=== PATIENT | female | born 1985 | race Caucasian/White ===

== ENCOUNTER 2017-11-08 17:05 | Emergency (ER) | payer BC, OTHER ==
[2017-11-08 17:34] VITALS: BP 120/83
--- NOTE | 2017-11-08 18:35 | EDM.PDOC ---
Scribed by Elin Wheeler 11/08/17 2433 for Maryellen Guerra NP ED HPI GENERAL MEDICAL PROBLEM - General Chief Complaint: Upper Extremity Injury/Pain Stated Complaint: LEFT PINKY, ? BROKEN Time Seen by Provider: 11/08/17 17:45 Source of Information: Reports: Patient, RN, RN Notes Reviewed History Limitations: Reports: No Limitations - History of Present Illness INITIAL COMMENTS - FREE TEXT/NARRATIVE: Patient presented to ER with complaint of pain in the left pinky. Patient states she was moving boxes and hurt her finger. See rad report. Onset: Today Location: Reports: Upper Extremity, Left Quality: Reports: Ache Severity: Mild Improves with: Reports: None Worsens with: Reports: None Associated Symptoms: Reports: No Other Symptoms Left Hand Pain Score (Numeric/FACES): 5 - Related Data Allergies Allergy/AdvReac Type Severity Reaction Status Date / Time amoxicillin trihydrate Allergy Rash Verified 11/08/17 17:34 [From Augmentin] potassium clavulanate Allergy Rash Verified 11/08/17 17:34 [From Augmentin] Home Meds: Home Meds Acetaminophen [Tylenol Extra Strength] 1,000 mg PO ASDIRECTED PRN 11/08/17 [ History] Norgestimate-Ethinyl Estradiol [Ortho-Cyclen 28 Tablet] 1 tab PO DAILY 11/08/17 [History] Past Medical History - Past Health History Medical/Surgical History: Denies Medical/Surgical History HEENT History: Reports: None Cardiovascular History: Reports: None Respiratory History: Reports: None Gastrointestinal History: Reports: None Genitourinary History: Reports: None BODY PIERCER History: Reports: None Neurological History: Reports: None Psychiatric History: Reports: None Endocrine/Metabolic History: Reports: None Hematologic History: Reports: None Immunologic History: Reports: None Oncologic (Cancer) History: Reports: None Dermatologic History: Reports: None - Infectious Disease History Infectious Disease History: Reports: Chicken Pox - Past Surgical History Head Surgeries/Procedures: Reports: None Female Surgical History: Reports: Section Musculoskeletal Surgical History: Reports: Other (See Below) Other Musculoskeletal Surgeries/Procedures:: pins in hand Social & Family History - Tobacco Use Smoking Status *Q: Never Smoker Second Hand Smoke Exposure: No - Caffeine Use Caffeine Use: Reports: None - Recreational Drug Use Recreational Drug Use: No Review of Systems - Review of Systems Review Of Systems: ROS reveals no pertinent complaints other than HPI. ED EXAM, GENERAL - Physical Exam Exam: See Below Exam Limited By: No Limitations General Appearance: Alert, WD/WN, No Apparent Distress Eye Exam: Bilateral Eye: EOMI, Normal Inspection Ears: Normal External Exam, Normal Canal, Hearing Grossly Normal, Normal TMs Nose: Normal Inspection, Normal Mucosa, No Blood Throat/Mouth: Normal Inspection, Normal Lips, Normal Teeth, Normal Gums, Normal Oropharynx, Normal Voice, No Airway Compromise Head: Atraumatic, Normocephalic Neck: Normal Inspection, Supple, Non-Tender, Full Range of Motion Respiratory/Chest: No Respiratory Distress, Lungs Clear, Normal Breath Sounds, No Accessory Muscle Use, Chest Non-Tender Cardiovascular: Normal Peripheral Pulses, Regular Rate, Rhythm, No Edema, No Gallop, No JVD, No Murmur, No Rub GI/Abdominal: Normal Bowel Sounds, Soft, Non-Tender, No Organomegaly, No Distention, No Abnormal Bruit, No Mass (Female) Exam: Deferred Rectal (Female) Exam: Deferred Back Exam: Normal Inspection, Full Range of Motion, NT Extremities: Other (Swelling/ecchymosis left pink finger) Neurological: Alert, Oriented, CN II-XII Intact, Normal Cognition, Normal Gait, Normal Reflexes, No Motor/Sensory Deficits Psychiatric: Normal Affect, Normal Mood Skin Exam: Other (see extremity exam.) ED TRAUMA EXTREMITY PROCEDURES - Splinting Left 5th Digit Splint Site: left pinky finger Pre-Procedure NV Status: Normal Post-Procedure NV Status: Normal Splint Material: Aluminum-Foam Applied & Form Fitted By: Provider Provider Post-Splint Application NV Check: NV Status Normal, Good Position Complications: No Course - Vital Signs Last Recorded V/S: Last Vital Signs Temp 36.6 C 11/08/17 17:29 Pulse 82 11/08/17 17:29 Resp 16 11/08/17 17:29 BP 120/83 11/08/17 17:29 Pulse Ox 100 11/08/17 17:29 - Orders/Labs/Meds Orders: Active Orders 24 hr Category Date Time Status Hand 2V Lt [CR] Urgent Exams 11/08/17 17:49 Taken - Radiology Interpretation Free Text/Narrative:: Left hand xray: IMPRESSION: Fracture of the proximal portion of the distal phalanx of the fifth finger noted. Overlying soft tissue swelling present. Thank you for allowing us to participate in the care of your patient. Dictated and Authenticated by: Vinnie Luke DO 11/08/2017 6:15 PM Central Time ([place] & [place]) See rad report Departure - Departure Time of Disposition: 18:19 Disposition: Home, Self-Care 01 Condition: Good Clinical Impression: Fracture, finger, distal phalanx Qualifiers: Encounter type: initial encounter Finger: little finger Fracture type: closed Fracture alignment: nondisplaced Laterality: left Qualified Code(s): S62.667A - Nondisplaced fracture of distal phalanx of left little finger, initial encounter for closed fracture - Discharge Information Instructions: Cast or Splint Care, Adult, [id number] Forms: ED Department Discharge Additional Instructions: May use Tylenol and/or ibuprofen as directed for pain Follow up with your primary care facility I have read and agree with the documentation that has been completed regarding this visit. By signing this record, I attest that the documentation was completed in my physical presence and is an accurate record of the encounter.
== END 2017-11-08 18:28 | disposition home or self-care (01) ==
LOC: DL.ED 17:05
DX: S62.667A Nondisplaced fracture of distal phalanx of left little finger, initial encounter for closed fracture (principal); Z88.1 Allergy status to other antibiotic agents; X58.XXXA Exposure to other specified factors, initial encounter
CPT/HCPCS: 73120-LT; 99284

== ENCOUNTER 2019-01-13 09:31 | Emergency (ER) | payer OTHER ==
--- NOTE | 2019-01-13 09:55 | EDM.PDOC ---
ED HPI GENERAL MEDICAL PROBLEM - General Chief Complaint: Back Pain or Injury Stated Complaint: BACK PAIN LOWER/UPPER PER PT Time Seen by Provider: 01/13/19 09:53 Source of Information: Reports: Patient, Old Records, RN, RN Notes Reviewed History Limitations: Reports: No Limitations - History of Present Illness INITIAL COMMENTS - FREE TEXT/NARRATIVE: Pt presents to ER from work by POV with c/o onset of low back pain 01/11/19 with no associated injury, activity, or cause. Shortly after the onset of back pain in the lumbar region, the pt reports the pain moved to the middle of her back, and then she developed epigastric pain that radiates straight through to the back and was associated with intense nausea. Denies fever, chills, vomiting, diarrhea, constipation, chest pain, or cough. Now pt has RUQ and epigastric abdominal pain with worsening nausea and middle back pain. She rates the pain . Onset Date: 01/11/19 Duration: Constant Location: Reports: Abdomen, Back Quality: Reports: Ache Severity: Severe Improves with: Reports: None Worsens with: Reports: Eating, Movement Associated Symptoms: Reports: No Other Symptoms Upper Back Pain Score (Numeric/FACES): 7 - Related Data Allergies Allergy/AdvReac Type Severity Reaction Status Date / Time amoxicillin trihydrate Allergy Mild Rash Verified 01/13/19 09:36 [From Augmentin] potassium clavulanate Allergy Rash Verified 11/08/17 17:34 [From Augmentin] Home Meds: Home Meds Acetaminophen [Tylenol Extra Strength] 1,000 mg PO ASDIRECTED PRN 11/08/17 [ History] Norgestimate-Ethinyl Estradiol [Ortho-Cyclen 28 Tablet] 1 tab PO DAILY 11/08/17 [History] Past Medical History - Past Health History Medical/Surgical History: Denies Medical/Surgical History HEENT History: Reports: None Cardiovascular History: Reports: None Respiratory History: Reports: None Gastrointestinal History: Reports: None Genitourinary History: Reports: None UNDER TRIMMER History: Reports: None Neurological History: Reports: None Psychiatric History: Reports: None Endocrine/Metabolic History: Reports: Obesity/BMI 30+ Hematologic History: Reports: None Immunologic History: Reports: None Oncologic (Cancer) History: Reports: None Dermatologic History: Reports: None - Infectious Disease History Infectious Disease History: Reports: Chicken Pox - Past Surgical History Head Surgeries/Procedures: Reports: None Female Surgical History: Reports: Section Musculoskeletal Surgical History: Reports: Other (See Below) Other Musculoskeletal Surgeries/Procedures:: pins in hand Social & Family History - Family History Family Medical History: Noncontributory - Tobacco Use Smoking Status *Q: Never Smoker - Caffeine Use Caffeine Use: Reports: None - Living Situation & Occupation Living situation: Reports: with Family Occupation: Employed ED ROS GENERAL - Review of Systems Review Of Systems: ROS reveals no pertinent complaints other than HPI. ED EXAM,LOWER BACK PAIN/INJURY - Physical Exam Exam: See Below Exam Limited By: No Limitations General Appearance: Alert, No Apparent Distress, Mild Distress (due to pain), Obese Eye Exam: Bilateral Eye: Normal Inspection (No scleral icterus) Nose: Normal Inspection Throat/Mouth: Normal Inspection, Normal Voice, No Airway Compromise Head: Atraumatic, Normocephalic Neck: Normal Inspection, Supple, Non-Tender, Full Range of Motion Respiratory/Chest: No Respiratory Distress, Lungs Clear, Normal Breath Sounds, No Accessory Muscle Use, Chest Non-Tender Cardiovascular: Normal Peripheral Pulses, Regular Rate, Rhythm, No Edema, No Gallop, No JVD, No Murmur, No Rub GI/Abdominal: Normal Bowel Sounds, Soft, No Distention, No Abnormal Bruit, Tender (RUQ and Epigastric tenderness). No: Guarding, Rigid, Rebound (Female) Exam: Deferred Rectal (Female) Exam: Deferred Back Exam: Full Range of Motion, Paraspinal Tenderness (thoracic and lumbar). No: CVA Tenderness (L), CVA Tenderness (R), Vertebral Tenderness Extremities: Normal Inspection, Normal Range of Motion, Non-Tender, No Pedal Edema, Normal Capillary Refill Neurological: Alert, Normal Mood/Affect, CN II-XII Intact, Normal Gait, No Motor /Sensory Deficits, Oriented x 3 Psychiatric: Normal Mood, Tearful Skin Exam: Warm, Dry, Intact, Normal Color, No Rash Course - Vital Signs Last Recorded V/S: Last Vital Signs Temp 97.3 F 01/13/19 12:33 Pulse 83 01/13/19 12:33 Resp 18 01/13/19 12:33 BP 114/69 01/13/19 12:33 Pulse Ox 100 01/13/19 12:33 - Orders/Labs/Meds Orders: Active Orders 24 hr Category Date Time Status Peripheral IV Care [RC] . DIRECTED Care 01/13/19 09:58 Active Abdomen Pelvis wo Cont [CT] Urgent Exams 01/13/19 10:50 Taken Sodium Chloride 0.9% [Saline Flush] Med 01/13/19 09:57 Active 10 ml FLUSH ASDIRECTED PRN Peripheral IV Insertion Adult [OM.PC] Stat Oth 01/13/19 09:57 Ordered Medication Orders Sodium Chloride (Saline Flush) 10 ml FLUSH ASDIRECTED PRN PRN Reason: Keep Vein Open Last Admin: 01/13/19 10:16 Dose: 10 ml Labs: Laboratory Tests 01/13/19 01/13/19 01/13/19 Range/Units 09:55 09:55 09:55 WBC (5.0-10.0) 10^3/uL RBC (4.2-5.4) 10^6/uL Hgb (12.0-16.0) g/dL Hct (37.0-47.0) % MCV (80-100) fL MCH (27.0-34.0) pg MCHC (33.0-35.0) g/dL Plt Count (150-450) 10^3/uL Neut % (Auto) (42.2-75.2) % Lymph % (Auto) (20.5-50.1) % [place] % (Auto) (2-8) % Eos % (Auto) (1.0-3.0) % Baso % (Auto) (0.0-1.0) % Sodium (135-145) mmol/L Potassium (3.6-5.0) mmol/L Chloride (101-111) mmol/L Carbon Dioxide (21.0-31.0) mmol/L Anion Gap BUN (7-18) mg/dL Creatinine (0.6-1.3) mg/dL Est Cr Clr Drug Dosing mL/min Estimated GFR (MDRD) BUN/Creatinine Ratio Glucose (74-105) mg/dL Calcium (8.4-10.2) mg/dl Total Bilirubin (0.2-1.0) mg/dL AST (10-42) IU/L ALT (10-60) IU/L Alkaline Phosphatase (42-121) IU/L Total Protein (6.7-8.2) g/dl Albumin (3.2-5.5) g/dl Globulin Albumin/Globulin Ratio Amylase (28-100) U/L Lipase (22-51) U/L Urine Color Yellow (YELLOW) Urine Appearance Clear (CLEAR) Urine pH 5.5 (5.0-9.0) Ur Specific Bud >= 1.030 (1.005-1.030) Urine Protein Negative (NEGATIVE) Urine Glucose (UA) Negative (NEGATIVE) Urine Ketones Negative (NEGATIVE) Urine Occult Blood Trace-intact H (NEGATIVE) Urine Nitrite Negative (NEGATIVE) Urine Bilirubin Negative (NEGATIVE) Urine Urobilinogen 0.2 (0.2-1.0) mg/dL Ur Leukocyte Esterase Negative (NEGATIVE) Urine RBC 0-5 /HPF Urine WBC 0-5 (0-5/HPF) /HPF Ur Epithelial Cells Many H (NOT SEEN) /HPF Amorphous Sediment Few (NOT SEEN) /HPF Urine Bacteria Few (0-FEW/HPF) /HPF Urine Mucus Many H (NOT SEEN) /LPF Urine HCG, Qual Negative Urine Opiates Screen Negative (NEGATIVE) Ur Oxycodone Screen Negative (NEGATIVE) Urine Methadone Screen Negative (NEGATIVE) Ur Barbiturates Screen Negative (NEGATIVE) U Tricyclic Antidepress Negative (NEGATIVE) Ur Phencyclidine Scrn Negative (NEGATIVE) Ur Amphetamine Screen Negative (NEGATIVE) U Methamphetamines Scrn Negative (NEGATIVE) Urine MDMA Screen Negative (NEGATIVE) U Benzodiazepines Scrn Negative (NEGATIVE) Urine Cocaine Screen Negative (NEGATIVE) U Marijuana (THC) Screen Negative (NEGATIVE) 01/13/19 01/13/19 Range/Units 10:05 10:05 WBC 6.4 (5.0-10.0) 10^3/uL RBC 4.93 (4.2-5.4) 10^6/uL Hgb 15.0 D (12.0-16.0) g/dL Hct 44.4 (37.0-47.0) % MCV 90.1 (80-100) fL MCH 30.4 (27.0-34.0) pg MCHC 33.8 (33.0-35.0) g/dL Plt Count 307 (150-450) 10^3/uL Neut % (Auto) 56.8 (42.2-75.2) % Lymph % (Auto) 34.5 (20.5-50.1) % [place] % (Auto) 6.3 (2-8) % Eos % (Auto) 1.9 (1.0-3.0) % Baso % (Auto) 0.5 (0.0-1.0) % Sodium 137 (135-145) mmol/L Potassium 3.8 (3.6-5.0) mmol/L Chloride 104 (101-111) mmol/L Carbon Dioxide 26.0 (21.0-31.0) mmol/L Anion Gap 10.8 BUN 9 (7-18) mg/dL Creatinine 0.6 (0.6-1.3) mg/dL Est Cr Clr Drug Dosing 115.16 mL/min Estimated GFR (MDRD) > 60 BUN/Creatinine Ratio 15.00 Glucose 93 (74-105) mg/dL Calcium 8.5 (8.4-10.2) mg/dl Total Bilirubin 0.5 (0.2-1.0) mg/dL AST 24 (10-42) IU/L ALT 26 (10-60) IU/L Alkaline Phosphatase 53 (42-121) IU/L Total Protein 7.8 (6.7-8.2) g/dl Albumin 4.1 (3.2-5.5) g/dl Globulin 3.7 Albumin/Globulin Ratio 1.11 Amylase 49 (28-100) U/L Lipase 30 (22-51) U/L Urine Color (YELLOW) Urine Appearance (CLEAR) Urine pH (5.0-9.0) Ur Specific Bud (1.005-1.030) Urine Protein (NEGATIVE) Urine Glucose (UA) (NEGATIVE) Urine Ketones (NEGATIVE) Urine Occult Blood (NEGATIVE) Urine Nitrite (NEGATIVE) Urine Bilirubin (NEGATIVE) Urine Urobilinogen (0.2-1.0) mg/dL Ur Leukocyte Esterase (NEGATIVE) Urine RBC /HPF Urine WBC (0-5/HPF) /HPF Ur Epithelial Cells (NOT SEEN) /HPF Amorphous Sediment (NOT SEEN) /HPF Urine Bacteria (0-FEW/HPF) /HPF Urine Mucus (NOT SEEN) /LPF Urine HCG, Qual Urine Opiates Screen (NEGATIVE) Ur Oxycodone Screen (NEGATIVE) Urine Methadone Screen (NEGATIVE) Ur Barbiturates Screen (NEGATIVE) U Tricyclic Antidepress (NEGATIVE) Ur Phencyclidine Scrn (NEGATIVE) Ur Amphetamine Screen (NEGATIVE) U Methamphetamines Scrn (NEGATIVE) Urine MDMA Screen (NEGATIVE) U Benzodiazepines Scrn (NEGATIVE) Urine Cocaine Screen (NEGATIVE) U Marijuana (THC) Screen (NEGATIVE) Meds: Medications Generic Name Dose Route Start Last Admin Trade Name Freq PRN Reason Stop Dose Admin Sodium Chloride 10 ml 01/13/19 09:57 01/13/19 10:16 Saline Flush FLUSH 10 ml ASDIRECTED PRN Administration Keep Vein Open Discontinued Medications Generic Name Dose Route Start Last Admin Trade Name Freq PRN Reason Stop Dose Admin Famotidine 20 mg 01/13/19 13:05 Pepcid IVPUSH 01/13/19 13:06 ONETIME ONE Hydromorphone HCl 1 mg 01/13/19 10:02 01/13/19 10:13 Dilaudid IVPUSH 01/13/19 10:03 1 mg ONETIME ONE Administration Hydromorphone HCl 1 mg 01/13/19 11:25 01/13/19 11:32 Dilaudid IVPUSH 01/13/19 11:26 1 mg ONETIME ONE Administration Hydromorphone HCl 1 mg 01/13/19 12:52 Dilaudid IVPUSH 01/13/19 12:53 ONETIME ONE Sodium Chloride 1,000 mls @ 999 mls/hr 01/13/19 10:03 01/13/19 10:11 Normal Saline IV 01/13/19 11:03 999 mls/hr .BOLUS ONE Administration Metronidazole 500 mg/ Premix 100 mls @ 100 mls/hr 01/13/19 10:49 01/13/19 10: 59 IV 01/13/19 11:48 100 mls/hr ONETIME ONE Administration Ketorolac Tromethamine 30 mg 01/13/19 10:50 01/13/19 10:59 Toradol IVPUSH 01/13/19 10:51 30 mg ONETIME ONE Administration Ondansetron HCl 4 mg 01/13/19 09:58 01/13/19 10:12 Zofran IV 01/13/19 09:59 4 mg ONETIME ONE Administration Ondansetron HCl 4 mg 01/13/19 11:25 01/13/19 11:31 Zofran IV 01/13/19 11:26 4 mg ONETIME ONE Administration - Radiology Interpretation Free Text/Narrative:: CT Abdomen/Pelvis w/out contrast: no renal or ureteral calculi, distended gallbladder, no other acute findings per Rad. report. US RUQ/Limited Abdomen: no GB stones or sludge, no ductal dilatation, negative GB US per Rad. report. - Re-Assessments/Exams Free Text/Narrative Re-Assessment/Exam: 01/13/19 13:06 I explained the exam findings, results of all diagnostic tests, working diagnosis, and any potential or additionally considered diagnoses, treatment/ disposition plan, self/home care instructions, rational for the diagnosis/ treatment plan/disposition plan, anticipated course of illness, and follow up instructions to the pt and pts family. The pt and pts family acknowledges understanding of the above explanation(s), and of the signs and symptoms which should prompt the return of the pt to the ER should those or any other concerning symptoms develop. Departure - Departure Time of Disposition: 12:49 Disposition: Home, Self-Care 01 Condition: Fair Clinical Impression: Upper abdominal pain, Bacterial vaginosis Acute back pain Qualifiers: Back pain location: back pain in unspecified location Back pain laterality: bilateral Qualified Code(s): M54.9 - Dorsalgia, unspecified - Discharge Information *PRESCRIPTION DRUG MONITORING PROGRAM REVIEWED*: No *COPY OF PRESCRIPTION DRUG MONITORING REPORT IN PATIENT AGATHA: No Instructions: Abdominal Pain, Adult, Acute Back Pain, Adult, Bacterial Vaginosis, [id number] Forms: ED Department Discharge Additional Instructions: Rx: Hydrocodone APAP 10mg/325mg (narcotic pain medication) Rx: Promethazine 25mg (nausea medication) Rx: Cyclobenzaprine 10mg (muscle spasm medication) *Do not drive or work while under the influence of the above three medications. Rx: Flagyl 500mg (antibiotic) Use over the counter Maalox and/or Ranitidine (Zantac) to reduce stomach acid until nausea resolves. Light activity as tolerated. Avoid lifting, bending, or twisting motions. Follow up in clinic in 1 to 2 days. Return to ER if you develop fever, vomiting, or any new/concerning symptoms. - My Orders Last 24 Hours: My Active Orders 01/13/19 09:57 Sodium Chloride 0.9% [Saline Flush] 10 ml FLUSH ASDIRECTED PRN Peripheral IV Insertion Adult [OM.PC] Stat 01/13/19 09:58 Peripheral IV Care [RC] . DIRECTED 01/13/19 10:50 Abdomen Pelvis wo Cont [CT] Urgent - Assessment/Plan Last 24 Hours: My Active Orders 01/13/19 09:57 Sodium Chloride 0.9% [Saline Flush] 10 ml FLUSH ASDIRECTED PRN Peripheral IV Insertion Adult [OM.PC] Stat 01/13/19 09:58 Peripheral IV Care [RC] . DIRECTED 01/13/19 10:50 Abdomen Pelvis wo Cont [CT] Urgent
[2019-01-13] MEDS ORDERED: Ondansetron 4 MG/2 ML SDV IV ONE ×3 (09:58→13:35)
[2019-01-13] MEDS ORDERED: HYDROmorphone 1 MG/ML Syringe IVPUSH ONE ×3 (10:02→12:52)
[2019-01-13] MEDS ORDERED: Sodium Chloride 0.9% 1,000 ML IV ONE (10:03)
[2019-01-13] MEDS: Sodium Chloride 0.9% 10 ML Syringe FLUSH PRN ×4 (10:16→13:40)
[2019-01-13 10:34] LABS: ANION GAP 10.8; CHLORIDE,CL 104 mmol/L (101-111); SODIUM,NA 137 mmol/L (135-145)
[2019-01-13] MEDS ORDERED: metroNIDAZOLE/Normal Saline 500 MG in Premix Bag 100 BAG IV ONE (10:49)
[2019-01-13] MEDS ORDERED: Ketorolac 30 MG/ML SDV IVPUSH ONE (10:50)
--- NOTE | 2019-01-13 12:52 | US ---
EXAMINATION: Abdomen Ltd SEX: Female AGE: 33 years CLINICAL HISTORY: 33-year-old female complaining of RUQ/epigastric pain w/nausea. Suspicious appearance GB on CT. INTERPRETATION: 1. Uniformly distended gallbladder without obvious echogenic "shadowing" stone in the cystic duct. Significance? 2. Uniformly thick wall and no pericystic fluid or mucosal wall polyps. 3. No mobile dependent intraluminal echogenic "shadowing" gallstones. 4. No abnormal dilatation of intra or extrahepatic biliary ducts (common hepatic duct 6 mm and the common bile duct 6.5 mm). 5. No ascites. CONCLUSION: Distended gallbladder (significance?) No gallstones.
[2019-01-13] MEDS ORDERED: Famotidine 20 MG/2 ML SDV IVPUSH ONE (13:05)
--- NOTE | 2019-01-13 13:42 | CT ---
EXAMINATION: [facility] CT renal stone study SEX: Female AGE: 35-year-old CLINICAL HISTORY: 35-year-old 185 pound female with hematuria. Back and right upper quadrant abdominal pain. INTERPRETATION: 1. Gallbladder distended RUQ and inhomogeneously dense suggesting possible noncalcified intraluminal stones. 2. Normal hepatic size and anatomic configuration without abnormal dilatation of the intra or extrahepatic biliary ducts. 3. Symmetric normal-appearing kidneys. No nephrolithiasis or obstructive uropathy (no pyelocaliectasis or ureterectasis). 4. No sign of renal cortical mass lesion (unenhanced exam). 5. Midline urinary bladder symmetrically distended. No intraluminal calcifications. 6. Normal appendix RLQ. Several diverticula sigmoid colon but no current signs of inflammatory "dirty" peritoneal fat or abscess. 7. No pelvic or abdominal mass lesion, mesenteric or retroperitoneal lymphadenopathy, signs of mechanical bowel obstruction, ascites or free intraperitoneal air. Midline uterus unremarkable. Small ovarian cysts bilaterally (largest on the right 15 mm). 8. Normal caliber abdominal aorta and its major branches. Lumbar spine unremarkable. Lung bases clear. CONCLUSION: No sign of urolithiasis or obstructive uropathy. Suspicious appearance gallbladder (see above) Unenhanced CT scan abdomen and pelvis otherwise unremarkable.
[2019-01-13 13:55] VITALS: BP 114/68
== END 2019-01-13 13:50 | disposition home or self-care (01) ==
LOC: DL.ED 09:31
DX: M54.5 Low back pain (principal); M54.6 Pain in thoracic spine; R10.11 Right upper quadrant pain; R10.13 Epigastric pain; N76.0 Acute vaginitis; B96.89 Other specified bacterial agents as the cause of diseases classified elsewhere; E66.9 Obesity, unspecified; Z68.41 Body mass index [BMI] 40.0-44.9, adult; Z88.1 Allergy status to other antibiotic agents; Z79.899 Other long term (current) drug therapy
CPT/HCPCS: 36415; 74176; 76705; 80053; 80305; 81001; 81025; 82150; 83690; 85025; 96361; 96365; 96375; 96376; 99284; J1170; J1885; J2405; J3490; J7030

== ENCOUNTER 2020-01-02 10:00 | Emergency (ER) | payer OTHER ==
[2020-01-02 10:13] VITALS: BP 124/67; PULSE 86
--- NOTE | 2020-01-02 10:32 | EDM.PDOC ---
Scribed by Elin Wheeler 01/02/20 1031 for Nancy Shah MD ED HPI GENERAL MEDICAL PROBLEM - General Chief Complaint: ENT Problem Stated Complaint: CANT HEAR OUT OF LEFT EAR AND IT HURTS Time Seen by Provider: 01/02/20 10:17 Source of Information: Reports: Patient, RN, RN Notes Reviewed History Limitations: Reports: No Limitations - History of Present Illness INITIAL COMMENTS - FREE TEXT/NARRATIVE: Patient presents to ED with left ear pain. This started yesterday with sharp pain and then got worse. She tried to wait until tomorrow. She tried to sleep on that side in case something came out. They are ringing. Her teeth hurt. Bilateral ears have been ringing for 2 weeks but today it is itchy. Onset: Gradual Duration: Getting Worse Location: Reports: Other (ears) Quality: Reports: Ache Severity: Mild Improves with: Reports: None Worsens with: Reports: None Associated Symptoms: Reports: No Other Symptoms Left Ear Pain Score (Numeric/FACES): 3 - Related Data Allergies Allergy/AdvReac Type Severity Reaction Status Date / Time No Known Allergies Allergy Verified 01/02/20 10:11 Home Meds: Home Meds Acetaminophen [Tylenol Extra Strength] 1,000 mg PO ASDIRECTED PRN 11/08/17 [History] Norgestimate-Ethinyl Estradiol [Ortho-Cyclen 28 Tablet] 1 tab PO DAILY 11/08/17 [History] Past Medical History - Past Health History Medical/Surgical History: Denies Medical/Surgical History HEENT History: Reports: None Cardiovascular History: Reports: None Respiratory History: Reports: None Gastrointestinal History: Reports: None Genitourinary History: Reports: None BIOMEDICAL 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: Reports: None Neurological History: Reports: None Psychiatric History: Reports: None Endocrine/Metabolic History: Reports: Obesity/BMI 30+ Hematologic History: Reports: None Immunologic History: Reports: None Oncologic (Cancer) History: Reports: None Dermatologic History: Reports: None - Infectious Disease History Infectious Disease History: Reports: None - Past Surgical History Head Surgeries/Procedures: Reports: None Female Surgical History: Reports: Section Musculoskeletal Surgical History: Reports: Other (See Below) Other Musculoskeletal Surgeries/Procedures:: pins in hand Social & Family History - Family History Family Medical History: Noncontributory - Tobacco Use Smoking Status *Q: Never Smoker Second Hand Smoke Exposure: No - Caffeine Use Caffeine Use: Reports: Coffee - Recreational Drug Use Recreational Drug Use: No - Living Situation & Occupation Living situation: Reports: with Family Occupation: Employed ED ROS ENT - Review of Systems Review Of Systems: Comprehensive ROS is negative, except as noted in HPI. ED EXAM, ENT - Physical Exam Exam: See Below Exam Limited By: No Limitations General Appearance: Alert, WD/WN, No Apparent Distress Ears: Other (normal right ear. Left canal erythematous and edematous with black cerumen noted. Left TM is red, bulge and purulent effusion. ) Head: Atraumatic, Normocephalic Neck: Normal Inspection Respiratory/Chest: No Respiratory Distress Cardiovascular: Regular Rate, Rhythm Back: Normal Inspection Extremities: Normal Inspection Neurological: Alert, Oriented Psychiatric: Normal Affect, Normal Mood Skin: Warm, Dry, Intact Lymphatic: Other (positive left cervical nodes) Course - Vital Signs Last Recorded V/S: Last Vital Signs Temp 98.3 F 01/02/20 10:11 Pulse 86 01/02/20 10:11 Resp 16 01/02/20 10:11 BP 124/67 01/02/20 10:11 Pulse Ox 99 01/02/20 10:11 Departure - Departure Time of Disposition: 10:28 Disposition: Home, Self-Care 01 Condition: Good Clinical Impression: Otitis media Qualifiers: Otitis media type: suppurative Chronicity: acute Laterality: left Recurrence: non-recurrent Spontaneous tympanic membrane rupture: without spontaneous rupture Qualified Code(s): H66.002 - Acute suppurative otitis media without spontaneous rupture of ear drum, left ear Otitis externa Qualifiers: Otitis externa type: swimmer's ear Chronicity: acute Laterality: left Qualified Code(s): H60.332 - Swimmer's ear, left ear - Discharge Information *PRESCRIPTION DRUG MONITORING PROGRAM REVIEWED*: Not Applicable *COPY OF PRESCRIPTION DRUG MONITORING REPORT IN PATIENT AGATHA: Not Applicable Instructions: Otitis Externa, [id number], Otitis Media, Adult, [id number] Forms: ED Department Discharge Additional Instructions: RX: Amoxicillin 500mg 3 times daily for 10 days. Debrox otic solution twice daily. Sepsis Event Note (ED) - Evaluation Sepsis Screening Result: No Definite Risk - Focused Exam Vital Signs: Vital Signs Temp Pulse Resp BP Pulse Ox 01/02/20 10:11 98.3 F 86 16 124/67 99 I have read and agree with the documentation that has been completed regarding this visit. By signing this record, I attest that the documentation was completed in my physical presence and is an accurate record of the encounter.
== END 2020-01-02 10:31 | disposition home or self-care (01) ==
LOC: DL.ED 10:00
DX: H66.002 Acute suppurative otitis media without spontaneous rupture of ear drum, left ear (principal); H60.332 Swimmer's ear, left ear; H61.22 Impacted cerumen, left ear; E66.9 Obesity, unspecified; Z68.41 Body mass index [BMI] 40.0-44.9, adult
CPT/HCPCS: 99282

== ENCOUNTER 2020-03-06 20:15 | Emergency (ER) | payer OTHER ==
[2020-03-06] MEDS ORDERED: Acetaminophen/HYDROcodone 325-10 MG Tab PO ONE (20:16)
[2020-03-06] MEDS ORDERED: Cyclobenzaprine 10 MG Tab PO ONE (20:16)
[2020-03-06 20:45] VITALS: BP 120/85; PULSE 93
[2020-03-06] MEDS ORDERED: Ondansetron 4 MG/2 ML SDV IVPUSH ONE (20:48)
[2020-03-06] MEDS ORDERED: fentaNYL 100 MCG/2 ML SDV IVPUSH ONE (20:48)
[2020-03-06] MEDS ORDERED: LORazepam 2 MG/ML SDV IVPUSH PRN (20:57)
[2020-03-06 21:05] LABS: ANION GAP 11.7 mEq/L (7-13); CHLORIDE,CL 101 mmol/L (98-107); SODIUM,NA 137 mmol/L (136-145)
--- NOTE | 2020-03-06 21:41 | CR ---
PROCEDURE INFORMATION: Exam: XR Chest, 2 Views Exam date and time: 03/06/2020 9:14 PM Age: 34 years old Clinical indication: Chest pain; Other: Chest back pain TECHNIQUE: Imaging protocol: XR of the chest Views: 2 views. COMPARISON: No relevant prior studies available. FINDINGS: Lungs: Unremarkable. No consolidation. Pleural space: Unremarkable. No pleural effusion. No pneumothorax. Heart/Mediastinum: Unremarkable. No cardiomegaly. Bones/joints: Unremarkable. IMPRESSION: No acute findings.
--- NOTE | 2020-03-06 22:05 | EDM.PDOC ---
ED HPI GENERAL MEDICAL PROBLEM - General Chief Complaint: Back Pain or Injury Stated Complaint: CHEST PAIN Time Seen by Provider: 03/06/20 20:45 Source of Information: Reports: Patient, RN History Limitations: Reports: No Limitations - History of Present Illness INITIAL COMMENTS - FREE TEXT/NARRATIVE: ED with c/o of chest pain that moved into back, similar episode one year ago. No nausea or vomiting. pain worse with movement. No fever, chills or cough. No shortness of breath. Denies injury, no change in activity, sudden onset. Right Upper Back Pain Score (Numeric/FACES): 10 - Related Data Allergies Allergy/AdvReac Type Severity Reaction Status Date / Time No Known Allergies Allergy Verified 03/06/20 20:40 Home Meds: Home Meds Acetaminophen [Tylenol Extra Strength] 1,000 mg PO ASDIRECTED PRN 11/08/17 [History] Norgestimate-Ethinyl Estradiol [Ortho-Cyclen 28 Tablet] 1 tab PO DAILY 11/08/17 [History] Past Medical History - Past Health History Medical/Surgical History: Denies Medical/Surgical History HEENT History: Reports: None Cardiovascular History: Reports: None Respiratory History: Reports: None Gastrointestinal History: Reports: None Genitourinary History: Reports: None 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: Reports: None Neurological History: Reports: None Psychiatric History: Reports: None Endocrine/Metabolic History: Reports: Obesity/BMI 30+ Hematologic History: Reports: None Immunologic History: Reports: None Oncologic (Cancer) History: Reports: None Dermatologic History: Reports: None - Infectious Disease History Infectious Disease History: Reports: None - Past Surgical History Head Surgeries/Procedures: Reports: None Female Surgical History: Reports: Section Musculoskeletal Surgical History: Reports: Other (See Below) Other Musculoskeletal Surgeries/Procedures:: pins in hand Social & Family History - Family History Family Medical History: Noncontributory - Tobacco Use Tobacco Use Status *Q: Never Tobacco User Second Hand Smoke Exposure: No - Caffeine Use Caffeine Use: Reports: None - Recreational Drug Use Recreational Drug Use: No - Living Situation & Occupation Living situation: Reports: with Family Occupation: Employed ED ROS GENERAL - Review of Systems Review Of Systems: Comprehensive ROS is negative, except as noted in HPI. ED EXAM, UPPER BACK/NECK PAIN - Physical Exam Exam: See Below Exam Limited By: No Limitations General Appearance: Alert, Anxious, Moderate Distress, Obese Eye Exam: Bilateral Eye: EOMI, PERRL Ears Exam: Normal External Exam, Hearing Grossly Normal Nose Exam: Normal Inspection Throat/Mouth Exam: Normal Inspection, Normal Voice, No Airway Compromise Head Exam: Atraumatic, Normocephalic Neck Exam: Non-Tender, Full Range of Motion Nexus Criteria: No: Posterior, Midline Cervical Tenderness, Evidence of Intoxication Cardiovascular/Respiratory: Regular Rate, Rhythm, Normal Peripheral Pulses GI/Abdominal: Normal Bowel Sounds, Soft, Non-Tender, No Organomegaly, No Distention Back Exam: Muscle Spasm (right lower scapular area ) Extremities: Normal Inspection, Normal Range of Motion Neurologic: Oriented x 3 Psychiatric: Anxious Skin Exam: Warm/Dry Course - Vital Signs Last Recorded V/S: Last Vital Signs Temp 98.5 F 03/06/20 20:41 Pulse 93 03/06/20 20:41 Resp 20 03/06/20 20:41 BP 120/85 03/06/20 20:41 Pulse Ox 100 03/06/20 20:41 - Orders/Labs/Meds Labs: Laboratory Tests 03/06/20 03/06/20 03/06/20 Range/Units 20:36 20:36 20:36 WBC 14.4 H (5.0-10.0) 10^3/uL RBC 4.66 (4.2-5.4) 10^6/uL Hgb 14.3 (12.0-16.0) g/dL Hct 41.6 (37.0-47.0) % MCV 89.3 (80-100) fL MCH 30.7 (27.0-34.0) pg MCHC 34.4 (33.0-35.0) g/dL Plt Count 349 (150-450) 10^3/uL Neut % (Auto) 66.4 (42.2-75.2) % Lymph % (Auto) 24.8 (20.5-50.1) % [place] % (Auto) 6.7 (2-8) % Eos % (Auto) 1.7 (1.0-3.0) % Baso % (Auto) 0.4 (0.0-1.0) % D-Dimer, Quantitative 100 (0-400) ng/mL Sodium 137 (136-145) mmol/L Potassium 3.7 (3.5-5.1) mmol/L Chloride 101 (98-107) mmol/L Carbon Dioxide 28 (21-32) mmol/L Anion Gap 11.7 (7-13) mEq/L BUN 8 (7-18) mg/dL Creatinine 0.75 (0.55-1.02) mg/dL Est Cr Clr Drug Dosing 95.10 mL/min Estimated GFR (MDRD) > 60 BUN/Creatinine Ratio 10.7 (No establ ref range) Glucose 78 (74-99) mg/dL Calcium 8.8 (8.5-10.1) mg/dL Total Bilirubin 0.8 (0.2-1.0) mg/dL AST 19 (15-37) U/L ALT 23 (14-59) U/L Alkaline Phosphatase 97 (46-116) U/L Troponin I < 0.017 (0.000-0.056) ng/mL Total Protein 7.6 (6.4-8.2) g/dL Albumin 3.7 (3.4-5.0) g/dL Globulin 3.9 Albumin/Globulin Ratio 0.9 Amylase (25-115) U/L Lipase (73-393) U/L HCG, Qual Negative Urine Color (YELLOW) Urine Appearance (CLEAR) Urine pH (5.0-9.0) Ur Specific [place] (1.005-1.030) Urine Protein (NEGATIVE) Urine Glucose (UA) (NEGATIVE) Urine Ketones (NEGATIVE) Urine Occult Blood (NEGATIVE) Urine Nitrite (NEGATIVE) Urine Bilirubin (NEGATIVE) Urine Urobilinogen (0.2-1.0) mg/dL Ur Leukocyte Esterase (NEGATIVE) Urine RBC /HPF Urine WBC (0-5/HPF) /HPF Ur Epithelial Cells (NOT SEEN) /HPF Amorphous Sediment (NOT SEEN) /HPF Urine Bacteria (0-FEW/HPF) /HPF Urine Mucus (NOT SEEN) /LPF Urine Opiates Screen (NEGATIVE) Ur Oxycodone Screen (NEGATIVE) Urine Methadone Screen (NEGATIVE) Ur Barbiturates Screen (NEGATIVE) U Tricyclic Antidepress (NEGATIVE) Ur Phencyclidine Scrn (NEGATIVE) Ur Amphetamine Screen (NEGATIVE) U Methamphetamines Scrn (NEGATIVE) Urine MDMA Screen (NEGATIVE) U Benzodiazepines Scrn (NEGATIVE) Urine Cocaine Screen (NEGATIVE) U Marijuana (THC) Screen (NEGATIVE) 03/06/20 03/06/20 03/06/20 Range/Units 20:36 20:46 20:46 WBC (5.0-10.0) 10^3/uL RBC (4.2-5.4) 10^6/uL Hgb (12.0-16.0) g/dL Hct (37.0-47.0) % MCV (80-100) fL MCH (27.0-34.0) pg MCHC (33.0-35.0) g/dL Plt Count (150-450) 10^3/uL Neut % (Auto) (42.2-75.2) % Lymph % (Auto) (20.5-50.1) % [place] % (Auto) (2-8) % Eos % (Auto) (1.0-3.0) % Baso % (Auto) (0.0-1.0) % D-Dimer, Quantitative (0-400) ng/mL Sodium (136-145) mmol/L Potassium (3.5-5.1) mmol/L Chloride (98-107) mmol/L Carbon Dioxide (21-32) mmol/L Anion Gap (7-13) mEq/L BUN (7-18) mg/dL Creatinine (0.55-1.02) mg/dL Est Cr Clr Drug Dosing mL/min Estimated GFR (MDRD) BUN/Creatinine Ratio (No establ ref range) Glucose (74-99) mg/dL Calcium (8.5-10.1) mg/dL Total Bilirubin (0.2-1.0) mg/dL AST (15-37) U/L ALT (14-59) U/L Alkaline Phosphatase (46-116) U/L Troponin I (0.000-0.056) ng/mL Total Protein (6.4-8.2) g/dL Albumin (3.4-5.0) g/dL Globulin Albumin/Globulin Ratio Amylase 44 (25-115) U/L Lipase 112 (73-393) U/L HCG, Qual Urine Color Light yellow (YELLOW) Urine Appearance Clear (CLEAR) Urine pH 7.5 (5.0-9.0) Ur Specific [place] 1.015 (1.005-1.030) Urine Protein Negative (NEGATIVE) Urine Glucose (UA) Negative (NEGATIVE) Urine Ketones Negative (NEGATIVE) Urine Occult Blood Trace-intact H (NEGATIVE) Urine Nitrite Negative (NEGATIVE) Urine Bilirubin Negative (NEGATIVE) Urine Urobilinogen 0.2 (0.2-1.0) mg/dL Ur Leukocyte Esterase Negative (NEGATIVE) Urine RBC 0-5 /HPF Urine WBC 0-5 (0-5/HPF) /HPF Ur Epithelial Cells Occasional (NOT SEEN) /HPF Amorphous Sediment Rare (NOT SEEN) /HPF Urine Bacteria Rare (0-FEW/HPF) /HPF Urine Mucus Rare (NOT SEEN) /LPF Urine Opiates Screen Negative (NEGATIVE) Ur Oxycodone Screen Negative (NEGATIVE) Urine Methadone Screen Negative (NEGATIVE) Ur Barbiturates Screen Negative (NEGATIVE) U Tricyclic Antidepress Negative (NEGATIVE) Ur Phencyclidine Scrn Negative (NEGATIVE) Ur Amphetamine Screen Negative (NEGATIVE) U Methamphetamines Scrn Negative (NEGATIVE) Urine MDMA Screen Negative (NEGATIVE) U Benzodiazepines Scrn Negative (NEGATIVE) Urine Cocaine Screen Negative (NEGATIVE) U Marijuana (THC) Screen Negative (NEGATIVE) Meds: Medications Discontinued Medications Generic Name Dose Route Start Last Admin Trade Name Freq PRN Reason Stop Dose Admin Hydrocodone Bitart/Acetaminophen Confirm 03/06/20 22:45 03/06/20 23:04 Salt[place] 325-10 Mg Administered 03/06/20 22:46 Not Given Dose 2 tab .ROUTE .STK-MED ONE Cyclobenzaprine HCl Confirm 03/06/20 22:43 03/06/20 23:04 Flexeril Administered 03/06/20 22:44 Not Given Dose 20 mg .ROUTE .STK-MED ONE Fentanyl 50 mcg 03/06/20 20:48 03/06/20 20:57 Sublimaze IVPUSH 03/06/20 20:49 50 mcg ONETIME ONE Administration Hydromorphone HCl 0.5 mg 03/06/20 22:06 Dilaudid IVPUSH 03/06/20 22:07 ONETIME ONE Hydromorphone HCl 1 mg 03/06/20 22:08 03/06/20 22:12 Dilaudid IVPUSH 03/06/20 22:09 1 mg ONETIME ONE Administration Lorazepam 1 mg 03/06/20 20:57 03/06/20 21:25 Ativan IVPUSH 1 mg ONETIME PRN Administration Spasms Ondansetron HCl 4 mg 03/06/20 20:48 03/06/20 20:53 Zofran IVPUSH 03/06/20 20:49 4 mg ONETIME ONE Administration - Re-Assessments/Exams Free Text/Narrative Re-Assessment/Exam: Intermittent pain relief, worse with movement, point tenderness with palpation, at rest rates 3/10. Departure - Departure Time of Disposition: 22:40 Disposition: Home, Self-Care 01 Condition: Good Clinical Impression: Spasm of thoracic back muscle - Discharge Information *PRESCRIPTION DRUG MONITORING PROGRAM REVIEWED*: No *COPY OF PRESCRIPTION DRUG MONITORING REPORT IN PATIENT AGATHA: No Instructions: Muscle Cramps and Spasms, [id number] Referrals: PCP,None [Primary Care Provider] - Forms: ED Department Discharge Additional Instructions: rest alternate heat and ice to upper back flexeril 10mg one every 8 hours as needed for muscle spasm #12 Hydrocodone 10/325 one every 6-8 hours as needed for muscle spasm #12 clinic follow up this week if not improving no driving while taking medication may alternate ibuprofen 600mg with hydrocodone Sepsis Event Note (ED) - Evaluation Sepsis Screening Result: No Definite Risk - Focused Exam Vital Signs: Vital Signs Temp Pulse Resp BP Pulse Ox 03/06/20 20:41 98.5 F 93 20 120/85 100
[2020-03-06] MEDS ORDERED: HYDROmorphone 0.5 MG/0.5 ML Syringe IVPUSH ONE (22:06)
[2020-03-06] MEDS ORDERED: HYDROmorphone 1 MG/ML Syringe IVPUSH ONE (22:08)
[2020-03-06] MEDS ORDERED: Cyclobenzaprine 10 MG Tab ONE (22:43)
[2020-03-06] MEDS ORDERED: Acetaminophen/HYDROcodone 325-10 MG Tab ONE (22:45)
== END 2020-03-06 23:00 | disposition home or self-care (01) ==
LOC: DL.ED 20:15
DX: M62.830 Muscle spasm of back (principal); E66.9 Obesity, unspecified
CPT/HCPCS: 36415; 71046; 80053; 80305; 81001; 82150; 83690; 84484; 84703; 85025; 85379; 93005; 96374; 96375; 99285; A9270; J1170; J2060; J2405; J3010; 99283

== ENCOUNTER 2020-11-08 01:57 | Emergency (ER) | payer OTHER ==
[2020-11-08] MEDS ORDERED: Lidocaine 2% Viscous Solution 15 ML Cup PO ONE (03:04)
--- NOTE | 2020-11-08 03:09 | EDM.PDOC ---
ED HPI GENERAL MEDICAL PROBLEM - General Chief Complaint: ENT Problem Stated Complaint: REALLY BAD TOOTHACHE LEFT LOWER Time Seen by Provider: 11/08/20 02:55 Source of Information: Reports: Patient History Limitations: Reports: No Limitations - History of Present Illness INITIAL COMMENTS - FREE TEXT/NARRATIVE: This 35 yo female patient reports to the ED with increased pain in her left lower 2nd molar. The patient reports she was seen in the dental office last week and initially started on Amoxicillin. The patient reports the antibiotic was changed yesterday to Clindamycin. The patient reports a significant increase in pain in the area today. The patient has been trying Orajel with little to no pain improvement. The patient reports she was initially given Tramadol over the weekend with some symptom improvement. The patient has been taking Tylenol (last dose was at 2200 last night) and ibuprofen with little to no change in her symptoms. 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, NSAIDS Left Lower Tooth/Teeth Pain Score (Numeric/FACES): 8 - Related Data Allergies Allergy/AdvReac Type Severity Reaction Status Date / Time No Known Allergies Allergy Verified 03/06/20 20:40 Home Meds: Home Meds Acetaminophen [Tylenol Extra Strength] 1,000 mg PO ASDIRECTED PRN 11/08/17 [History] Norgestimate-Ethinyl Estradiol [Ortho-Cyclen 28 Tablet] 1 tab PO DAILY 11/08/17 [History] Past Medical History - Past Health History Medical/Surgical History: Denies Medical/Surgical History HEENT History: Reports: None Cardiovascular History: Reports: None Respiratory History: Reports: None Gastrointestinal History: Reports: None Genitourinary History: Reports: None 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: 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: None Neurological History: Reports: None Psychiatric History: Reports: None Endocrine/Metabolic History: Reports: Obesity/BMI 30+ Hematologic History: Reports: None Immunologic History: Reports: None Oncologic (Cancer) History: Reports: None Dermatologic History: Reports: None - Infectious Disease History Infectious Disease History: Reports: None - Past Surgical History Head Surgeries/Procedures: Reports: None Female Surgical History: Reports: Section Musculoskeletal Surgical History: Reports: Other (See Below) Other Musculoskeletal Surgeries/Procedures:: pins in hand Social & Family History - Family History Family Medical History: No Pertinent Family History - Caffeine Use Caffeine Use: Reports: None - Living Situation & Occupation Living situation: Reports: with Family Occupation: Employed ED ROS ENT - Review of Systems Review Of Systems: Comprehensive ROS is negative, except as noted in HPI. ED EXAM, ENT - Physical Exam Exam: See Below Exam Limited By: No Limitations General Appearance: Alert, WD/WN, Moderate Distress Eye Exam: Bilateral Eye: EOMI, Normal Inspection, PERRL Ears: Normal External Exam, Normal Canal, Hearing Grossly Normal, Normal TMs Nose: Normal Inspection, Normal Mucousa, No Blood Mouth/Throat: Dental Pain, Dental Tenderness Head: Atraumatic, Normocephalic Neck: Normal Inspection, Supple, Non-Tender, Full Range of Motion Respiratory/Chest: No Respiratory Distress, Lungs Clear, Normal Breath Sounds, No Accessory Muscle Use, Chest Non-Tender Cardiovascular: Normal Peripheral Pulses, Regular Rate, Rhythm, No Edema, No G allop, No JVD, No Murmur, No Rub GI/Abdominal: Normal Bowel Sounds, Soft, Non-Tender, No Organomegaly, No Distention, No Abnormal Bruit, No Mass Rectal (Female) Exam: Deferred Back: Normal Inspection, Full Range of Motion Extremities: Normal Inspection, Normal Range of Motion, Non-Tender, No Pedal E yari, Normal Capillary Refill Neurological: Alert, Oriented, CN II-XII Intact, Normal Cognition, Normal Gait, Normal Reflexes, No Motor/Sensory Deficits Psychiatric: Normal Affect, Normal Mood Skin: Warm, Dry, Intact, Normal Color, No Rash Lymphatic: No Adenopathy Course - Vital Signs Last Recorded V/S: Last Vital Signs Temp 98.1 F 11/08/20 02:50 Pulse 92 11/08/20 02:50 Resp 20 11/08/20 02:50 BP 133/97 H 11/08/20 02:50 Pulse Ox 99 11/08/20 02:50 - Orders/Labs/Meds Meds: Medications Discontinued Medications Generic Name Dose Route Start Last Admin Trade Name Freq PRN Reason Stop Dose Admin Hydrocodone Bitart/Acetaminophen 1 tab 11/08/20 03:28 Acetaminophen/Hydrocodone 325-10 Mg Tab PO 11/08/20 03:29 ONETIME ONE Lidocaine HCl 15 ml 11/08/20 03:04 11/08/20 03:24 Lidocaine 2% Viscous Solution 15 Ml Cup PO 11/08/20 03:05 15 ml ONETIME ONE Administration Departure - Departure Time of Disposition: 03:30 Disposition: Home, Self-Care 01 Condition: Fair Clinical Impression: Dental abscess, Pain, dental - Discharge Information *PRESCRIPTION DRUG MONITORING PROGRAM REVIEWED*: Not Applicable *COPY OF PRESCRIPTION DRUG MONITORING REPORT IN PATIENT AGATHA: Not Applicable Instructions: Dental Abscess, [id number] Forms: ED Department Discharge Care Plan Goals: The patient was advised of the examination results during the visit. The patient was given a dose of Viscous Lidocaine while in the ED with little to no symptom improvement. The patient was given an oral dose of [place] (10/325) while in the ED. The patient was discharged with a script for [place] (10/325) #8 to take 1 by mouth every 6 hours as needed for pain. The patient was encouraged to continue to take the Clindamycin as prescribed. If the patient has any additional symptoms or concerns, the patient should visit her dental provider or return to the emergency department. Sepsis Event Note (ED) - Focused Exam Vital Signs: Vital Signs Temp Pulse Resp BP Pulse Ox 11/08/20 02:50 98.1 F 92 20 133/97 H 99
[2020-11-08 03:13] VITALS: BP 133/97; PULSE 92
[2020-11-08] MEDS ORDERED: Acetaminophen/HYDROcodone 325-10 MG Tab PO ONE (03:28)
== END 2020-11-08 03:50 | disposition home or self-care (01) ==
LOC: DL.ED 01:57
DX: K04.7 Periapical abscess without sinus (principal); E66.9 Obesity, unspecified; Z68.41 Body mass index [BMI] 40.0-44.9, adult
CPT/HCPCS: 99282; 99283; A9270-GY

== ENCOUNTER 2022-03-10 17:56 | Emergency (ER) | payer OTHER | END 2022-03-10 19:00 | disposition left against medical advice (07) | LOC: DL.ED 17:56 | DX: Z53.21 Procedure and treatment not carried out due to patient leaving prior to being seen by health care provider (principal) ==

== ENCOUNTER 2023-07-26 09:13 | Emergency (ER) | payer OTHER ==
[2023-07-26 09:52] VITALS: PULSE 98
[2023-07-26 09:54] LABS: BASOPHILS PERCENT AUTO 0.7 % (0.0-1.0); EOSINOPHILS PERCENT AUTO 2.5 % (1.0-3.0); HEMOGLOBIN 8.7 g/dL (12.0-16.0); LYMPHOCYTES PERCENT AUTO 23.3 % (20.5-50.1); MEAN CORPUSCULAR HEMOGLOBIN 26.9 pg (27.0-34.0); MEAN CORPUSCULAR HGB CONC 31.1 g/dL (33.0-35.0); MEAN CORPUSCULAR VOLUME 86.4 fL (80-100); MONOCYTES PERCENT AUTO 6.3 % (2-8); NEUTROPHILS PERCENT AUTO 67.2 % (42.2-75.2); PLATELET COUNT,PLT 397 10^3/uL (150-450); RED BLOOD CELL COUNT 3.24 10^6/uL (4.2-5.4); WHITE BLOOD CELL COUNT,WBC 8.3 10^3/uL (5.0-10.0)
[2023-07-26] MEDS: Ketorolac 30 MG/ML SDV IM ONE (09:57)
[2023-07-26 11:08] VITALS: BP 128/79
== END 2023-07-26 11:04 | disposition home or self-care (01) ==
LOC: DL.ED 09:13
DX: N92.4 Excessive bleeding in the premenopausal period (principal); E66.9 Obesity, unspecified; Z79.899 Other long term (current) drug therapy; Z68.42 Body mass index [BMI] 45.0-49.9, adult
CPT/HCPCS: 36415; 85025; 96372; 99283; 99284; J1885

== ENCOUNTER 2023-12-20 21:04 | Emergency (ER) | payer OTHER ==
[2023-12-20] MEDS: Take Home: Acetaminophen/HYDROcodone 325-5 MG, 5 Tab Pack PO ONE (22:12)
[2023-12-20] MEDS: Take Home: Amoxicillin 500 MG, 6 Cap Pack PO ONE (22:12)
[2023-12-20 22:20] VITALS: BP 130/82; PULSE 91
== END 2023-12-20 22:15 | disposition home or self-care (01) ==
LOC: DL.ED 21:04
DX: H66.91 Otitis media, unspecified, right ear (principal); E66.9 Obesity, unspecified; Z79.899 Other long term (current) drug therapy; Z68.42 Body mass index [BMI] 45.0-49.9, adult
CPT/HCPCS: 99282; A9270

== ENCOUNTER 2024-01-10 20:12 | Emergency (ER) | payer OTHER ==
[2024-01-10 20:29] VITALS: PULSE 97
[2024-01-10 20:55] LABS: BASOPHILS PERCENT AUTO 0.2 % (0.0-1.0); EOSINOPHILS PERCENT AUTO 1.4 % (1.0-3.0); HEMATOCRIT 39.7 % (37.0-47.0); HEMOGLOBIN 12.2 g/dL (12.0-16.0); LYMPHOCYTES PERCENT AUTO 22.8 % (20.5-50.1); MEAN CORPUSCULAR HGB CONC 30.7 g/dL (33.0-35.0); MEAN CORPUSCULAR VOLUME 78.1 fL (80-100); MONOCYTES PERCENT AUTO 6.7 % (2-8); NEUTROPHILS PERCENT AUTO 68.9 % (42.2-75.2); PLATELET COUNT,PLT 414 10^3/uL (150-450); RED BLOOD CELL COUNT 5.08 10^6/uL (4.2-5.4); WHITE BLOOD CELL COUNT,WBC 13.8 10^3/uL (5.0-10.0)
[2024-01-10 21:17] LABS: A/G RATIO 0.8; ALANINE AMINOTRANSFERASE,ALT 24 U/L (14-59); ALBUMIN 3.7 g/dL (3.4-5.0); ALKALINE PHOSPHATASE 102 U/L (46-116); ANION GAP 12.6 mEq/L (7-13); ASPARTATE AMNIOTRANSFERASE,AST 19 U/L (15-37); BILIRUBIN TOTAL 0.7 mg/dL (0.2-1.0); BLOOD UREA NITROGEN,BUN 11 mg/dL (7-18); BUN/CREATININE RATIO 12.6 (No establ ref range); C-REACTIVE PROTEIN 1.91 ng/dL (<=0.50); CALCIUM 8.8 mg/dL (8.5-10.1); CARBON DIOXIDE,CO2 26 mmol/L (21-32); CHLORIDE,CL 101 mmol/L (98-107); CREATININE 0.87 mg/dL (0.55-1.02); ESTIMATED GFR 87 mL/min (>=60); GLUCOSE RANDOM 93 mg/dL (70-99); POTASSIUM,K 3.6 mmol/L (3.5-5.1); PROTEIN TOTAL,TP 8.2 g/dL (6.4-8.2); SODIUM,NA 136 mmol/L (136-145)
[2024-01-10 21:21] LABS: HCG QUALITATIVE,SERUM NEGATIVE (NEGATIVE)
[2024-01-10] MEDS ORDERED: Iopamidol 612 MG/ML 100 ML Bottle IVPUSH ONE (21:31)
[2024-01-10] MEDS: Sodium Chloride 0.9% 10 ML Syringe FLUSH PRN (21:38)
[2024-01-10] MEDS: Ondansetron 4 MG/2 ML SDV IVPUSH ONE (21:38)
[2024-01-10] MEDS: fentaNYL 100 MCG/2 ML SDV IVPUSH ONE (21:38)
[2024-01-10] MEDS: HYDROmorphone 0.5 MG/0.5 ML Syringe IVPUSH ONE (22:22)
[2024-01-10 22:53] VITALS: BP 122/74
[2024-01-10] MEDS: Hydrocortisone/Neomycin/Polymyxin B Otic Susp 10 ML Bottle EARLF ONE (23:42)
[2024-01-10] MEDS: Take Home: Amoxicillin/Clavulanate K 875-125 MG Tab, 6 Tab Pack PO ONE (23:42)
[2024-01-10] MEDS: Amoxicillin/Clavulanate K 875-125 MG Tab PO ONE (23:46)
[2024-01-10] MEDS: HYDROmorphone 1 MG/ML Syringe IVPUSH ONE (23:48)
[2024-01-10] MEDS: Ketorolac 30 MG/ML SDV IVPUSH ONE (23:48)
== END 2024-01-11 00:19 | disposition home or self-care (01) ==
LOC: DL.ED 20:12
DX: H60.502 Unspecified acute noninfective otitis externa, left ear (principal); H66.92 Otitis media, unspecified, left ear; E66.9 Obesity, unspecified; Z79.899 Other long term (current) drug therapy
CPT/HCPCS: 36415; 70470; 70492; 80053; 83605; 84703; 85025; 86140; 87040; 87070; 96374; 96375; 96376; 99284; A9270; J1170; J1885; J2405; J3010; 87077; 87186; 99282; J3490

== ENCOUNTER 2024-01-12 04:12 | Emergency (ER) | payer OTHER ==
[2024-01-12] MEDS: Ketorolac 30 MG/ML SDV IM ONE (04:41)
[2024-01-12 04:57] VITALS: BP 129/74; PULSE 97
== END 2024-01-12 05:05 | disposition home or self-care (01) ==
LOC: DL.ED 04:12
DX: H60.92 Unspecified otitis externa, left ear (principal); E66.9 Obesity, unspecified; Z79.899 Other long term (current) drug therapy; Z68.42 Body mass index [BMI] 45.0-49.9, adult
CPT/HCPCS: 96372; 99282; J1885